=== PATIENT | female | born 1985 | race Caucasian/White ===

== ENCOUNTER 2016-08-07 21:08 | Emergency (ER) | payer OTHER, BC ==
[~2016-08-07] VITALS: Ht 165.1 cm; Wt 70.4 kg
[~2016-08-07 21:08] MED LIST: AMITRIPTYLINE H10 MG PO; BUTALB-APAP-CA1 EACH PO; CLONAZEPAM0.5 MG PO; HYCODAN SYRUP480 ML PO; KETOROLAC TROME10 MG PO; LEVAQUIN500 MG PO; MELATONIN3 MG PO; MOTRIN800 MG PO; PROMETHAZINE HC25 M1 PO; REGLAN10 MG PO; TOPAMAX100 MG PO
[2016-08-07] MEDS ORDERED: PREDNISONE20 MG PO (22:47)
[2016-08-07] MEDS ORDERED: FLEXERIL10 MG PO (22:47)
[2016-08-07] MEDS ORDERED: MOTRIN800 MG PO (22:47)
[2016-08-08 00:20] VITALS: BP 111/74
== END 2016-08-08 00:22 | disposition home or self-care (01) ==
LOC: EME 21:08
DX: M62.838 Other muscle spasm (principal); F17.200 Nicotine dependence, unspecified, uncomplicated; V49.40XA Driver injured in collision with unspecified motor vehicles in traffic accident, initial encounter; Y92.411 Interstate highway as the place of occurrence of the external cause
CPT/HCPCS: 72040; 72100; 99281; 99283; J7512